=== PATIENT | female | born 1945 | race Caucasian/White ===

== ENCOUNTER 2017-09-24 14:36 | Outpatient (CLI) | payer MEDICARE, OTHER, SELFPAY ==
[2017-09-24] VITALS (8 sets, daily range): BP systolic 104–145; BP diastolic 49–103; PULSE 70–75; RESP 12–18; TEMP 36.3; O2SAT 95–99
--- NOTE | 2017-09-24 14:39 | DI.RAD.S_ITS ---
PROCEDURE: PAIN L/S TRANSFORAMINAL INJECT INDICATIONS: L5 RADICULOPATHY FINDINGS: Fluoroscopic spot filming was performed to verify placement of spinal needles at the L5 level(s), as labeled on the films. Appropriate location(s) of the needle tip(s) was confirmed by injection of iodinated contrast. IMPRESSION: Image documentation of epidural needle injection at the right L5 level. Dictated by: Hiro Henderson M.D. on 09/24/2017 at 16:23 Approved by: Hiro Henderson M.D. on 09/24/2017 at 16:25
--- NOTE | 2017-09-24 15:20 | P.PCN_ITS ---
Procedures Date/Time Date of procedure: 09/24/17 Time of procedure: 15:18 General Procedure description: PREOP DIAGNOSIS 1. FORAMINAL STENOSIS WITH LE SYMPTOMS, POST OP DIAGNOSIS 1. FORAMINAL STENOSIS WITH LE SYMPTOMS, PROCEDURES 1.FLUOROSCOPICALLY GUIDED CONTRAST CONTROLLED TRANSFORAMINAL EPIDURAL STEROID INJECTION - RIGHT L5/S1 TFESI PHYSICIAN: Jorge Luis Mariano DO INDICATIONS: Halley is referred by GURDEEP Butler for treatment of Foraminal Stenosis with right LE Symptoms FINDINGS Foraminal Nerve Root Compression secondary to disc disease and facet hypertrophy DESCRIPTION OF PROCEDURE Following denial of allergy and review of potential side effects and complications, including, but not necessarily limited to, infection, allergic reaction, local tissue breakdown, stroke, temporary or permanent nerve injury, paralysis, and possible , the patient indicated that the patient understood and agreed to proceed. An informed consent document was signed by the patient, witnessed by a nurse, and placed in the patient's chart. Additionally, other treatment options including medications, modalities, and physical therapy were reviewed with the patient. In the prone position following sterile prep and drape of the lumbar region, the right L5/S1 posterior neuroforamen was identified fluoroscopically. The skin was anesthetized via a 25-gauge 1.5-inch needle with 1% lidocaine solution. At this point, a 25-gauge 3.5-inch spinal needle was atraumatically introduced and advanced under fluoroscopic guidance through the posterior right L5/S1 neuroforamen to approximately the anterior aspect of the canal. Depth was confirmed on lateral view. Following negative aspiration, injection of approximately 1.5 cc of Isovue 200 under live fluoroscopy in the AP view confirmed excellent flow along the nerve root, into the epidural space without vascular or intrathecal uptake observed Radiological data, including multiple fluoroscopic views of the lumbosacral spine, reveal a spinal needle at the right L5/S1 posterior neuroforamen. Subsequent views show flow of contrast material flowing superiorly and inferiorly along the nerve root confirming epidural flow. Subsequently, a test dose of 1.5 cc of 1% lidocaine solution was administered and patient was observed for two minutes for signs or symptoms of complications , including abdominal pain, shortness of breath, bilateral upper or lower extremity weakness, nausea and vomiting, prior to steroid injection. At this point, a total of 3 cc or 20 mg of dexamethasone and 80mg Depo Medrol was injected without incident. The patient was then transferred to the recovery area where they were observed for an appropriate time after the injection. The patient reported a VAS score of 7 prior to the procedure and a post-procedure VAS of 0. Total Fluoroscopy Time: 20.9 seconds Total Conscious Sedation Time: 24min POST OP INSTRUCTIONS The patient was provided a Pain Log to continue to record their response to the target-specific procedure prior to follow-up visit with their referring physician. Additionally, specific post-injection care instructions and a contact number to our office were provided if concerns arise regarding possible complications associated with the procedure are suspected. Jorge Luis Mariano DO Complications: none
[2017-09-24] MEDS: MIDAZOLAM 5 MG/5 ML VIAL IV (15:30)
[2017-09-24] MEDS: BUPIVACAINE 0.25% (PF) 30 ML VIAL INJ (15:30)
[2017-09-24] MEDS: IOPAMIDOL 15 ML VIAL 3 ML INJ (15:30)
[2017-09-24] MEDS: methylPREDNISolone acetate 80 MG/ML VIAL INJ (15:30)
== END 2017-09-24 16:23 ==
LOC: RAD 14:38
PROVIDERS: Family Provider Student in an Organized Health Care Education/Training Program; PCP Student in an Organized Health Care Education/Training Program; Visit Provider Physical Medicine & Rehabilitation
DX: M48.061 Spinal stenosis, lumbar region without neurogenic claudication (principal); M43.17 Spondylolisthesis, lumbosacral region; M54.17 Radiculopathy, lumbosacral region
CPT/HCPCS: 64483; 99152; J1040; J2250

== ENCOUNTER → 2017-10-16 10:51 | Outpatient (CLI) | payer MEDICARE, OTHER, SELFPAY ==
--- NOTE | 2017-10-16 10:53 | DI.RAD.S_ITS ---
PROCEDURE: XR HIP W PEL IF DONE RT 2V INDICATIONS: right hip pain TECHNIQUE: AP pelvis with lateral view(s) of the right hip(s). COMPARISON: [facility], , PELVIS WITH BILATERAL HIPS, 05/12/2012, 10:17. FINDINGS: Bones: No fractures or dislocations. Pelvic ring appears intact. No suspicious bony lesions. Right hip joint space narrowing has increased since prior exam. Mild left hip joint space narrowing is unchanged. Minimal hypertrophic changes and sclerosis right greater than left.. Soft tissues: The visualized bowel gas pattern is normal. No suspicious soft tissue calcifications. IMPRESSION: Increased arthritis right hip Dictated by: Hiro Henderson M.D. on 10/16/2017 at 12:15 Approved by: Hiro Henderson M.D. on 10/16/2017 at 12:17
== END ==
PROVIDERS: Family Provider Student in an Organized Health Care Education/Training Program; PCP Student in an Organized Health Care Education/Training Program; Visit Provider Physical Medicine & Rehabilitation
DX: M16.11 Unilateral primary osteoarthritis, right hip (principal); M25.551 Pain in right hip
CPT/HCPCS: 73502

== ENCOUNTER 2018-05-26 11:07 | Outpatient (CLI) | payer MEDICARE, OTHER, SELFPAY ==
[2018-05-26] VITALS (8 sets, daily range): BP systolic 125–146; BP diastolic 57–88; PULSE 70–78; RESP 16–18; TEMP 36.2; O2SAT 96–98
--- NOTE | 2018-05-26 11:10 | DI.RAD.S_ITS ---
PROCEDURE: PAIN L/S TRANSFORAMINAL INJECT INDICATIONS: L5 radiculopathy FINDINGS: Fluoroscopic spot filming was performed to verify placement of spinal needles at the L5-S1 level(s), as labeled on the films. Appropriate location(s) of the needle tip(s) was confirmed by injection of iodinated contrast. Dictated by: Dewayne Yang M.D. on 05/26/2018 at 13:47 Approved by: Dewayne Yang M.D. on 05/26/2018 at 13:48
[2018-05-26] MEDS: MIDAZOLAM 5 MG/5 ML VIAL IV (11:44)
[2018-05-26] MEDS: BUPIVACAINE 0.25% (PF) VIAL 2 ML INJ (11:47)
[2018-05-26] MEDS: IOPAMIDOL 15 ML VIAL 3 ML INJ (11:47)
[2018-05-26] MEDS: DEXAMETHASONE 10 MG/ML VIAL 20 MG INJ (11:48)
--- NOTE | 2018-05-26 11:53 | PC.NURSE ---
pt tolerated procedure. Able to get off table with minimal assist. Transferred pt to pre procedure room via wheelchair for continued monitoring with Heidy AL.
--- NOTE | 2018-05-26 11:58 | P.PCN_ITS ---
Procedures Date/Time Date of procedure: 05/26/18 Time of procedure: 11:56 General Procedure description: PREOP DIAGNOSIS 1. FORMAINAL STENOSIS WITH LE SYMPTOMS, POST OP DIAGNOSIS 1. FORMAINAL STENOSIS WITH LE SYMPTOMS, PROCEDURES 1.FLUOROSCOPICALLY GUIDED CONTRAST CONTROLLED TRANSFORAMINAL EPIDURAL STEROID INJECTION - RIGHT L5/S1 TFESI PHYSICIAN: Jorge Luis Mariano DO INDICATIONS: Halley is referred by GURDEEP Malik for treatment of Foraminal Stenosis with right LE Symptoms FINDINGS Foraminal Nerve Root Compression secondary to disc disease and facet hypertrophy DESCRIPTION OF PROCEDURE Following denial of allergy and review of potential side effects and complications, including, but not necessarily limited to, infection, allergic reaction, local tissue breakdown, stroke, temporary or permanent nerve injury, paralysis, and possible , the patient indicated that the patient understood and agreed to proceed. An informed consent document was signed by the patient, witnessed by a nurse, and placed in the patient's chart. Additionally, other treatment options including medications, modalities, and physical therapy were reviewed with the patient. After review of previous anaesthesic history and IV conscious sedation the patient was deemed safe to proceed with todays procedure with IV conscious sedation as ASA class II designation. Safety time-out was performed to confirm patient ID, procedure to be performed and site of procedure. IV sedation was accomplished with a combination of 3mg was administered by the RN after DO order, titrated to patient comfort during the course of the procedure while the patient remained responsive to all verbal commands In the prone position following sterile prep and drape of the lumbar region, the right L5/S1 posterior neuroforamen was identified fluoroscopically. The skin was anesthetized via a 25-gauge 1.5-inch needle with 1% lidocaine solution. At this point, a 25-gauge 3.5-inch spinal needle was atraumatically introduced and advanced under fluoroscopic guidance through the posterior right L5/S1 neuroforamen to approximately the anterior aspect of the canal. Depth was confirmed on lateral view. Following negative aspiration, injection of approximately 1.5 cc of Isovue 200 under live fluoroscopy in the AP view confirmed excellent flow along the nerve root, into the epidural space without vascular or intrathecal uptake observed Radiological data, including multiple fluoroscopic views of the lumbosacral spine, reveal a spinal needle at the right L5/S1 posterior neuroforamen. Subsequent views show flow of contrast material flowing superiorly and in feriorly along the nerve root confirming epidural flow. Subsequently, a test dose of 1.5 cc of 1% lidocaine solution was administered and patient was observed for two minutes for signs or symptoms of complications, including abdominal pain, shortness of breath, bilateral upper or lower extremity weakness, nausea and vomiting, prior to steroid injection. At this point, a total of 2cc or 20mg of dexamethasone was injected without incident. The procedure tolerated the procedure well without signs or symptoms of complications prior to transfer to the recovery area continued monitoring with out incident. The patient was then transferred to the recovery area where they were observed for an appropriate time after the injection. The patient reported a VAS score of 7 prior to the procedure and a post-procedure VAS of 0. Total Fluoroscopy Time: 20.9 seconds Total Conscious Sedation Time: 24min POST OP INSTRUCTIONS The patient was provided a Pain Log to continue to record their response to the target-specific procedure prior to follow-up visit with their referring physician. Additionally, specific post-injection care instructions and a contact number to our office were provided if concerns arise regarding possible complications associated with the procedure are suspected. Jorge Luis Mariano DO Complications: none
--- NOTE | 2018-05-27 16:23 | PC.NURSE ---
Follow up call made post procedure. Her pain on the Right side is gone but she is now having pain on her left. She has an appt tomorrow with her chiropractor and will also take some tramadol for her continuous headache. She has both diazepam and Tramadol and decided to take the Tramadol for sx's I will let Dr. Mariano know.
== END 2018-05-26 12:23 | disposition home or self-care (01) ==
LOC: RAD 11:09
PROVIDERS: PCP Student in an Organized Health Care Education/Training Program; Visit Provider Physical Medicine & Rehabilitation
DX: M48.07 Spinal stenosis, lumbosacral region (principal); M51.17 Intervertebral disc disorders with radiculopathy, lumbosacral region
CPT/HCPCS: 64483; 99152; J1100; J2250

== ENCOUNTER → 2018-07-03 12:27 | Outpatient (CLI) | payer MEDICARE, OTHER, SELFPAY ==
--- NOTE | 2018-07-03 12:32 | DI.RAD.S_ITS ---
PROCEDURE: XR LUMBAR SPINE MIN 4V INDICATIONS: Lumbar Radiculopathy TECHNIQUE: 5 views of the lumbar spine were acquired. COMPARISON: [facility], , L-SPINE 2-3 VIEWS, 09/20/2010, 15:16. FINDINGS: Bones: 5 nonrib-bearing vertebrae are present. Grade 1 anterolisthesis of L5 on S1 is again seen. There is grade 1 anterolisthesis of L4 on L5 not definitely noticed on previous study in 2010. Chronic appearing anterior wedge compression deformity at L2 level is again seen with interval further loss of L2 vertebral body height. There is anterior wedge compression deformity at L1 level which is new since the study with approximately 30% loss of L1 vertebral body height anteriorly. No other compression fracture. Degenerative disc disease throughout lumbar spine is seen more prominent at L2-3, L4-5 and L5-S1 levels. No suspicious bony lesions. Soft tissues: Overlying bowel gas pattern is normal. No suspicious soft tissue calcifications. Oblique images: Bilateral pars defects are noted at L5 level. Suggestion of bilateral neural foramina narrowing at L4-5 and L5-S1 levels are seen. IMPRESSION: 1. Bilateral pars defect at L5 level with grade 1 anterolisthesis of L5 on S1 unchanged from prior study. 2. Interval development of minimal anterolisthesis of L4 on L5. No gross pars defect is seen at this level. 3. Degenerative disc disease throughout lumbar spine. Chronic appearing compression deformity of L2, with interval further loss of L2 vertebral body height. Age indeterminate anterior wedge compression deformity of L1 new since 2000 study. Dictated by: Danie Rice M.D. on 07/03/2018 at 14:46 Approved by: Danie Rice M.D. on 07/03/2018 at 14:49
--- NOTE | 2018-07-03 12:32 | DI.RAD.S_ITS ---
PROCEDURE: XR KNEE LT 3V INDICATIONS: Knee DJD TECHNIQUE: 3 views of the knee were acquired. COMPARISON: None. FINDINGS: Bones: Mild to moderate tricompartment osteoarthritis is seen, more prominent in the medial femorotibial compartment. No fractures or dislocations. No patella subluxation. No suspicious bony lesions. Soft tissues: No joint effusion. No suspicious soft tissue calcifications. IMPRESSION: Mild to moderate intra-compartment osteoarthritis. Dictated by: Danie Rice M.D. on 07/03/2018 at 14:34 Approved by: Danie Rice M.D. on 07/03/2018 at 14:45
--- NOTE | 2018-07-03 12:32 | DI.RAD.S_ITS ---
PROCEDURE: XR KNEE RT 3V INDICATIONS: Knee DJD TECHNIQUE: 3 views of the knee were acquired. COMPARISON: None. FINDINGS: Bones: Moderate tricompartmental osteoarthritis is seen. No fractures or dislocations. No suspicious bony lesions. No significant patellar subluxation. Soft tissues: No joint effusion. No suspicious soft tissue calcifications. IMPRESSION: Moderate tricompartmental osteoarthritis. Dictated by: Danie Rice M.D. on 07/03/2018 at 14:34 Approved by: Danie Rice M.D. on 07/03/2018 at 14:34
== END ==
PROVIDERS: PCP Student in an Organized Health Care Education/Training Program; Visit Provider Physical Medicine & Rehabilitation
DX: M17.0 Bilateral primary osteoarthritis of knee (principal); M51.16 Intervertebral disc disorders with radiculopathy, lumbar region; M51.17 Intervertebral disc disorders with radiculopathy, lumbosacral region; M43.17 Spondylolisthesis, lumbosacral region; S32.020S Wedge compression fracture of second lumbar vertebra, sequela; S32.010S Wedge compression fracture of first lumbar vertebra, sequela; M48.062 Spinal stenosis, lumbar region with neurogenic claudication; Z96.641 Presence of right artificial hip joint; M17.12 Unilateral primary osteoarthritis, left knee; M54.17 Radiculopathy, lumbosacral region; M51.36 Other intervertebral disc degeneration, lumbar region; Z98.890 Other specified postprocedural states
CPT/HCPCS: 20611; 72110; 73562; 99214; J7318

== ENCOUNTER 2018-07-28 13:47 | Outpatient (CLI) | payer MEDICARE, OTHER, SELFPAY ==
[2018-07-28] VITALS (9 sets, daily range): BP systolic 135–161; BP diastolic 51–93; PULSE 68–74; RESP 16–18; TEMP 36.2; O2SAT 94–98
--- NOTE | 2018-07-28 13:49 | DI.RAD.S_ITS ---
PROCEDURE: PAIN L/S TRANSFORAMINAL INJECT INDICATIONS: RADICULOPATHY FINDINGS: Fluoroscopic spot filming was performed to verify placement of spinal needles at the L4-L5 level(s), as labeled on the films. Appropriate location(s) of the needle tip(s) was confirmed by injection of iodinated contrast. IMPRESSION: Fluoroscopy guidance for pain management. Dictated by: Marvin Lehman M.D. on 07/28/2018 at 15:45 Approved by: Marvin Lehman M.D. on 07/28/2018 at 15:45
[2018-07-28] MEDS: MIDAZOLAM 5 MG/5 ML VIAL IV (14:33)
[2018-07-28] MEDS: BUPIVACAINE 0.25% (PF) VIAL 2 ML INJ (14:37)
[2018-07-28] MEDS: BETAMETHASONE 30 MG/5 ML MDV 6 MG INJ (14:37)
[2018-07-28] MEDS: DEXAMETHASONE 10 MG/ML VIAL 20 MG INJ (14:37)
[2018-07-28] MEDS: IOPAMIDOL 15 ML VIAL 3 ML INJ (14:37)
--- NOTE | 2018-07-28 14:43 | PC.NURSE ---
ASSISTING PT OFF TABLE AND TRANSPORTING TO POST PROC AREA IN STABLE CONDITION
--- NOTE | 2018-07-28 14:49 | P.PCN_ITS ---
Procedures Date/Time Date of procedure: 07/28/18 Time of procedure: 14:48 General Procedure description: PREOP DIAGNOSIS 1. FORMAINAL STENOSIS WITH LE SYMPTOMS POST OP DIAGNOSIS 1. FORMAINAL STENOSIS WITH LE SYMPTOMS PROCEDURES 1. FLUOROSCOPICALLY GUIDED CONTRAST CONTROLLED TRANSFORAMINAL EPIDURAL STEROID INJECTION - RIGHT L4/5 TFESI PHYSICIAN: Jorge Luis Mariano DO INDICATIONS: Halley is referred by GURDEEP Malik for treatment of Foraminal Stenosis with Right LE Symptoms FINDINGS Foraminal Nerve Root Compression secondary to disc disease and facet hypertrophy DESCRIPTION OF PROCEDURE: Following denial of allergy and review of potential side effects and complications, including, but not necessarily limited to, infection, allergic reaction, local tissue breakdown, stroke, temporary or permanent nerve injury, paralysis, and possible , the patient indicated that the patient understood and agreed to proceed. An informed consent document was signed by the patient, witnessed by a nurse, and placed in the patient's chart. Additionally, other treatment options including medications, modalities, and physical therapy were reviewed with the patient. After review of previous anaesthesic history and IV conscious sedation the patient was deemed safe to proceed with todays procedure with IV conscious sedation as ASA class II designation. Safety time-out was performed to confirm patient ID, procedure to be performed and site of procedure. IV sedation was accomplished with a combination of 3mg of Versed was administered by the RN after DO order, titrated to patient comfort during the course of the procedure while the patient remained responsive to all verbal commands In the prone position following sterile prep and drape of the lumbar region, the Right L4/5 posterior neuroforamen was identified fluoroscopically. The skin was anesthetized via a 25-gauge 1.5-inch needle with 1% lidocaine solution. At this point, a 25-gauge 3.5-inch spinal needle was atraumatically introduced and advanced under fluoroscopic guidance through the posterior Right L4/5 neuroforamen to approximately the anterior aspect of the canal. Depth was confirmed on lateral view. Following negative aspiration, injection of approximately 1.5 cc of Isovue 200 under live fluoroscopy in the AP view confirmed excellent flow along the nerve root, into the epidural space without vascular or intrathecal uptake observed Radiological data, including multiple fluoroscopic views of the lumbosacral spine, reveal a spinal needle at the right L4/5 posterior neuroforamen. Subsequent views show flow of contrast material flowing superiorly and inferiorly along the nerve root confirming epidural flow. Subsequently, a test dose of 1.5 cc of 1% lidocaine solution was administered and patient was observed for two minutes for signs or symptoms of complications, including abdominal pain, shortness of breath, bilateral upper or lower extremity weakness, nausea and vomiting, prior to steroid injection. At this point, a total of 2cc or 20mg of dexamethasone was injected without incident. The procedure tolerated the procedure well without signs or symptoms of complications prior to transfer to the recovery area continued monitoring without incident.The patient was then transferred to the recovery area where they were observed for an appropriate time after the injection. The patient reported a VAS score of 7 prior to the procedure and a post- procedure VAS of 0. Total Fluoroscopy Time: 20.9 seconds Total Conscious Sedation Time: 24min POST OP INSTRUCTIONS The patient was provided a Pain Log to continue to record their response to the target-specific procedure prior to follow-up visit with their referring physician. Additionally, specific post-injection care instructions and a contact number to our office were provided if concerns arise regarding possible complications associated with the procedure are suspected. Jorge Luis Mariano DO Complications: none
--- NOTE | 2018-07-28 14:55 | PC.NURSE ---
Pt returned from Procedure awake and alert able to move to chair from W/C with standby assist. Resumed monitoring from Heidy AL.
--- NOTE | 2018-07-29 15:42 | PC.NURSE ---
FOLLOW UP CALL MADE, PT STATES PAIN COMES BACK ON THIGH IF I DON'T WEAR MY BRACE BUT SAYS OTHER THAN THAT, THE PAIN IS DECREASED. PT REQUESTS I REMIND DR. FLYNN OF DESIRE FOR PROCEDURE TO BE DONE ON RT KNEE. WILL SEND DR. FLYNN AN EMAIL. PT DENIES OTHER QUESTIONS/CONCERNS.
== END 2018-07-28 15:15 ==
LOC: RAD 13:48
PROVIDERS: PCP Student in an Organized Health Care Education/Training Program; Visit Provider Physical Medicine & Rehabilitation
DX: M48.062 Spinal stenosis, lumbar region with neurogenic claudication (principal); M51.16 Intervertebral disc disorders with radiculopathy, lumbar region
CPT/HCPCS: 64483; 99152; J0702; J1100; J2250; J3010

== ENCOUNTER → 2018-12-30 09:11 | Outpatient (CLI) | payer MEDICARE, OTHER, SELFPAY ==
--- NOTE | 2018-12-30 09:15 | DI.MRI.S_ITS ---
PROCEDURE: MR HEAD/BRAIN WO/W CON INDICATIONS: change in migraine headaches now with vertigo + age > 50 y/o TECHNIQUE: Noncontrast axial T1 spin echo, axial T2 fast spin echo, sagittal and axial FLAIR, coronal T2 fast spin echo, axial gradient echo, axial diffusion and ADC through the brain. After the administration of contrast, axial and coronal T1 spin echo with fat saturation through the brain. COMPARISON: None. FINDINGS: Image quality: Partially degraded by motion artifact. CSF spaces: Basal cisterns are patent. No extra-axial fluid collections. Ventricles are normal in size and shape. Brain: No midline shift. No intracranial bleeds or masses. No abnormal intracranial enhancement. There is mild cerebral volume loss for age. The brainstem appears normal. Diffusion-weighted images demonstrate no acute ischemic insults. No chronic ischemic insults. Normal intravascular flow voids are present. Skull and face: Calvarial marrow is normal in signal. Orbits appear normal. Sinuses: Sinuses and mastoids appear clear. IMPRESSION: 1. No acute process. No recent infarct. 2. No explanation for headache. 3. Mild diffuse cerebral volume loss. Dictated by: Essie Lewis M.D. on 12/30/2018 at 11:12 Approved by: Essie Lewis M.D. on 12/30/2018 at 11:20
== END ==
PROVIDERS: Family Provider Student in an Organized Health Care Education/Training Program; PCP Student in an Organized Health Care Education/Training Program; Visit Provider Family Medicine
DX: G43.909 Migraine, unspecified, not intractable, without status migrainosus (principal); R42 Dizziness and giddiness
CPT/HCPCS: 70553; A9579

== ENCOUNTER 2019-04-20 09:01 | Outpatient (CLI) | payer BC, MEDICARE, SELFPAY ==
[2019-04-20] VITALS (8 sets, daily range): BP systolic 129–149; BP diastolic 58–91; PULSE 73–84; RESP 16–18; TEMP 35.9; O2SAT 95–97
--- NOTE | 2019-04-20 09:04 | DI.RAD.S_ITS ---
PROCEDURE: PAIN L/SI FACET INJ/BLK 1STL INDICATIONS: Spondylosis FINDINGS: Fluoroscopic spot filming was performed to verify placement of spinal needles at the L4-L5 and L5-S1 level(s), as labeled on the films. Appropriate location(s) of the needle tip(s) was confirmed by injection of iodinated contrast. IMPRESSION: Fluoroscopy for pain management. Dictated by: Marvin Lehman M.D. on 04/20/2019 at 12:18 Approved by: Marvin Lehman M.D. on 04/20/2019 at 12:19
[2019-04-20] MEDS: MIDAZOLAM 5 MG/5 ML VIAL IV (09:58)
[2019-04-20] MEDS: BETAMETHASONE 30 MG/5 ML MDV 12 MG INJ (10:08)
[2019-04-20] MEDS: IOPAMIDOL 15 ML VIAL 3 ML INJ (10:08)
[2019-04-20] MEDS: BUPIVACAINE 0.5% (PF) VIAL 2 ML INJ (10:08)
--- NOTE | 2019-04-20 10:09 | PC.NURSE ---
ASSISTING PT OFF TABLE AND TRANSPORTING TO POST PROC AREA IN STABLE CONDITION. PASSING RN CARE OF PT OFF TO MINE Galvez RN
--- NOTE | 2019-04-20 10:13 | P.PCN_ITS ---
Procedures Date/Time Date of procedure: 04/20/19 Time of procedure: 10:13 General Procedure description: PREOP DIAGNOSIS 1. FACET ARTHROPATHY, 2. AXIAL LBP, 3. MULTILEVEL DDD, POST OP DIAGNOSIS 1. FACET ARTHROPATHY, 2. AXIAL LBP, 3. MULTILEVEL DDD, PROCEDURES 1. FLUORSCOPICALLY GUIDED CONTRAST CONTROLLED FACET JOINT INJECTIONS RIGHT L4/5, L5/S1 SURGEON: Jorge Luis Mariano, INDICATIONS Halley is referred by Katt Malik for treatment of Axial LBP FINDINGS Multilevel Facet Arthropathy with Clinically significant axial LBP DESCRIPTION OF PROCEDURE Fluoroscopically guided, contrast-controlled right L4/5, L5/S1 facet joint injections. Following review of allergy and review of potential side effects and complications, including, but not necessarily limited to, infection, allergic reaction, local tissue breakdown, stroke, temporary or permanent nerve injury, paralysis, and possible , the patient indicated that the patient understood and agreed to proceed. An informed consent document was signed by the patient, witnessed by a nurse, and placed in the patient's chart. Additionally, other treatment options including medications, modalities, and physical therapy were reviewed with the patient. After review of previous anaesthesic history and IV conscious sedation the patient was deemed safe to proceed with todays procedure with IV conscious sedation as ASA class II designation. Safety time-out was performed to confirm patient ID, procedure to be performed and site of procedure. IV sedation was accomplished with a combination of 3mg of Versed was administered by the RN after DO order, titrated to patient comfort during the course of the procedure while the patient remained responsive to all verbal commands. In the prone position, following sterile prep and drape of the lumbar region, the posterior aspect of the right L4/5, L5/S1 facet joints were identified fluoroscopically. The skin was anesthetized via a 25-gauge 1.5-inch needle with 1% lidocaine solution into the corresponding facet joints. At this point, a 22- gauge 3.5-inch spinal needle was atraumatically introduced and advanced under fluoroscopic guidance into the corresponding facet joints. Following negative aspiration, injections of approximately 0.2-cc of Isovue 200 confirmed interarticular placement without vascular uptake. Radiological data, including multiple fluoroscopic views of the lumbosacral spine, reveal a spinal needle at the right L4/5, L5/S1 facet joints. Subsequent views show flow of contrast material both superiorly and inferiorly within the joint space without vascular or intrathecal uptake. At this point, a total of 0.5 cc including a mixture of 0.25cc Marcaine and 0.25cc betamethasone was injected without complication into each of the corresponding facet joints. The procedure tolerated the procedure well without signs or symptoms of complications prior to transfer to the recovery area continued monitoring without incident. The patient was then transferred to the recovery area where they were observed for an appropriate period of time after the injection. The patient reported a VAS score of 7 prior to the procedure and a post-procedure VAS of 0. Total Fluoroscopy Time: 12.7 seconds Total Conscious Sedation Time: 24min POST OP INSTRUCTIONS The patient was provided a Pain Log to continue to record their response to the target-specific procedure prior to follow-up visit with their referring physician. Additionally, specific post-injection care instructions and a contact number to our office were provided if concerns arise regarding possible complications associated with the procedure are suspected. Jorge Luis Mariano, Complications: none
--- NOTE | 2019-04-20 10:46 | PC.NURSE ---
Post procedure discharge note: Patient arrived awake but drowsy. VSS on arrival with RA Sat WNL. NO compliants of pain. 0/10. Denied any numbness or tingling to lower extremities. Discharged to home, w/c to car with at 1039.
== END 2019-04-20 10:39 | disposition home or self-care (01) ==
LOC: RAD 09:04
PROVIDERS: Family Provider Student in an Organized Health Care Education/Training Program; PCP Student in an Organized Health Care Education/Training Program; Visit Provider Physical Medicine & Rehabilitation
DX: M47.816 Spondylosis without myelopathy or radiculopathy, lumbar region (principal); M47.817 Spondylosis without myelopathy or radiculopathy, lumbosacral region; M54.5 Low back pain; M51.36 Other intervertebral disc degeneration, lumbar region; M51.37 Other intervertebral disc degeneration, lumbosacral region
CPT/HCPCS: 64493; 64494; 99152; J0702; J2250; J3010

== ENCOUNTER → 2019-04-27 15:45 | Outpatient (ROUT) | payer OTHER, MEDICARE, SELFPAY | PROVIDERS: Family Provider Student in an Organized Health Care Education/Training Program; PCP Student in an Organized Health Care Education/Training Program; Visit Provider Internal Medicine | DX: R39.15 Urgency of urination (principal); N39.0 Urinary tract infection, site not specified | CPT/HCPCS: 87086 ==

== ENCOUNTER → 2019-08-21 08:45 | Outpatient (CLI) | payer OTHER, MEDICARE, SELFPAY ==
[2019-08-22 21:59] LABS: COVID19 Sendout Not Detected (Not Detect)
== END ==
PROVIDERS: Family Provider Student in an Organized Health Care Education/Training Program; PCP Student in an Organized Health Care Education/Training Program; Visit Provider Family Medicine
DX: Z01.818 Encounter for other preprocedural examination (principal)
CPT/HCPCS: 87635

== ENCOUNTER → 2019-08-23 07:41 | Outpatient (CLI) | payer OTHER, SELFPAY ==
--- NOTE | 2019-08-23 07:43 | DI.MRI.S_ITS ---
PROCEDURE: MR LUMBAR SPINE WO CON INDICATIONS: LBP with Bilateral LE symptoms TECHNIQUE: Noncontrast sagittal T1 spin echo and T2 fast echo, sagittal STIR, axial T1 and T2 fast spin echo through the lumbar spine. In cases with scoliosis, additional coronal T2 fast spin echo may be performed. COMPARISON: None. FINDINGS: Image quality: Diagnostic, with note made of motion artifact. Alignment and Curvature: Grade 1 anterolisthesis is seen at the L5-S1 level. Bilateral L5 pars defects are faintly seen. There is minimal retrolisthesis seen at L2-L3. Bone Marrow: Marrow is of normal overall signal. No acute vertebral body compression fractures. Anterior wedge deformities can be seen L1 and L2, with 40% loss of height anteriorly at L1 and 40% loss of height anteriorly at L2. No acute features are seen. No posterior displacement of fracture fragments can be seen. Spinal Cord: Conus medullaris terminates at the L1 level. Visualized cord demonstrates normal signal and size. Paraspinous Soft Tissues: No paravertebral masses. T12-L1: The disc height is well-preserved. Loss of disc signal is seen at this level. Mild generalized disc bulge is seen. No significant neural foraminal or central canal narrowing can be seen. L1-L2: The disc height is well-preserved. Loss of disc signal is seen at this level. Minimal to mild disc bulge is seen. No significant neural foraminal or central canal narrowing can be seen. L2-L3: The disc height is well-preserved. Loss of disc signal is seen at this level. Mild disc bulge is seen, which is eccentric to the left. Mild to moderate facet hypertrophy is seen. There is mild to moderate right-sided and moderate left-sided neural foraminal narrowing seen. Mild central canal narrowing is seen. L3-L4: Mild loss of disc height is seen. Loss of disc signal is seen. Mild generalized disc bulge is seen. Mild facet joint hypertrophy is seen. Mild bilateral neural foraminal narrowing is seen. No significant central canal narrowing is seen. L4-L5: The disc height is well-preserved. Loss of disc signal is seen at this level. Mild generalized disc bulge is seen. Moderate to prominent facet hypertrophy is seen. Fluid is seen within the facet joints themselves. Moderate bilateral neural foraminal narrowing is seen. No central canal narrowing is seen. L5-S1: Moderate loss of disc height is seen. Loss of disc signal is seen. Moderate disc bulge is seen, which is eccentric to the right. Mild to moderate facet hypertrophy is seen. There is at least moderate right-sided and moderate to severe left-sided neural foraminal narrowing seen. There is a degree of compression seen upon the exiting nerve roots. No significant central canal narrowing is seen. IMPRESSION: Multiple levels of lumbar spine degenerative change are seen, which are most prominent at the L5-S1 level. Remote anterior wedge deformities of L1 and L2. Dictated by: Agusto Aleman M.D. on 08/23/2019 at 9:13 Approved by: Agusto Aleman M.D. on 08/23/2019 at 9:27
== END ==
PROVIDERS: Family Provider Student in an Organized Health Care Education/Training Program; PCP Student in an Organized Health Care Education/Training Program; Referring Provider Physical Medicine & Rehabilitation; Visit Provider Physical Medicine & Rehabilitation
DX: M54.5 Low back pain (principal); M43.17 Spondylolisthesis, lumbosacral region; M47.27 Other spondylosis with radiculopathy, lumbosacral region; M47.26 Other spondylosis with radiculopathy, lumbar region; M43.8X6 Other specified deforming dorsopathies, lumbar region
CPT/HCPCS: 72148

== ENCOUNTER 2019-08-24 08:35 | Outpatient (CLI) | payer OTHER, SELFPAY ==
[2019-08-24] VITALS (11 sets, daily range): BP systolic 107–150; BP diastolic 67–98; PULSE 66–79; RESP 15–16; TEMP 36.6; O2SAT 94–99
--- NOTE | 2019-08-24 08:36 | DI.RAD.S_ITS ---
PROCEDURE: PAIN L/S FACET INJ/BLK 1ST TWYLA COMPARISON: None. INDICATIONS: SPODYLOSIS Fluoroscopic spot filming was performed to verify placement of spinal needles at the L4, L5, S1 level(s), as labeled on the films. Appropriate location(s) of the needle tip(s) was confirmed by injection of iodinated contrast. Dictated by: Dewayne Yang M.D. on 08/24/2019 at 11:18 Approved by: Dewayne Yang M.D. on 08/24/2019 at 11:19
[2019-08-24] MEDS: MIDAZOLAM 5 MG/5 ML VIAL IV (10:11)
[2019-08-24] MEDS: fentaNYL 100 MCG/2 ML INJ 50 MCG IV (10:18)
[2019-08-24] MEDS: BUPIVACAINE 0.5% (PF) VIAL 5 ML INJ (10:21)
[2019-08-24] MEDS: LIDOCAINE 1% 20 ML 10 ML INJ (10:21)
[2019-08-24] MEDS: IOPAMIDOL 15 ML VIAL 3 ML INJ (10:25)
--- NOTE | 2019-08-24 10:25 | PC.NURSE ---
ASSISTING PT OFF TABLE AND TRANSPORTING TO POST PROC AREA IN STABLE CONDITION. PASSING RN CARE OF PT OFF TO MIKAELA MARVIN.
--- NOTE | 2019-08-24 10:29 | P.PCN_ITS ---
Procedures Date/Time Date of procedure: 08/24/19 Time of procedure: 10:29 General Procedure description: Procedure description: 1. FACET ARTHROPATHY PROCEDURES: 1. BILATERAL- L4, L5 and S1 DIAGNOSTIC MB BLOCKS with LA Anesthetic PHYSICIAN: Jorge Luis Mariano DO INDICATIONS Halley is referred by GURDEEP Malik for treatment of Bilateral Axial LBP. DESCRIPTION OF PROCEDURE Fluoroscopically guided, contrast-controlled bilateral L4, L5 and S1 medial branch blocks with 0.5cc of 0.5% Marcaine. Following review of allergy and review of potential side effects and complications, including, but not necessarily limited to, infection, allergic reaction, local tissue breakdown, nerve injury, paralysis, stroke and possible , the patient indicated that the patient understood and agreed to proceed. An informed consent document was signed by the patient, witnessed by a nurse, and placed in the patient's chart. After review of previous anaesthesic history and IV conscious sedation the patient was deemed safe to proceed with todays procedure with IV conscious sedation as ASA class II designation. Safety time-out was performed to confirm patient ID, procedure to be performed and site of procedure. IV sedation was accomplished with a combination of 4mg of Versed and 50mcg of Fentanyl was administered by the RN after DO order, titrated to patient comfort during the course of the procedure while the patient remained responsive to all verbal commands In the prone position, following sterile prep and drape of the lumbar region, the right L4, L5 and S1 anatomical location of the medial branch of the dorsal ramus was identified fluoroscopically. Subsequently an anesthetic skin wheal using 1% lidocaine solution was initiated at each of the anatomical spots. Subsequently then a 22-gauge 3.5-inch spinal needle was atraumatically introduced and advanced under fluoroscopic guidance at each of the corresponding sites at the right L4, L5 and S1 MB. After negative aspiration, 0.2cc of Isovue 200 was injected, confirming placement without vascular or intrathecal uptake. Subsequently then 0.5cc of 0.5% Marcaine solution was injected at each of the corresponding sites at the right L4, L5 and S1 medial branch locations. The identical procedure was replicated on the left. The patient tolerated the procedure well without signs or symptoms of complications prior to transfer to the recovery area continued monitoring witho ut incident. Post-procedure, the patient was monitored initiating provocative activities to measure the amount of relief from block of the facetogenic pain. The patient reported a VAS of 7 prior to the procedure and a post-procedure VAS of 1. It has been a pleasure to assist in the diagnostic and therapeutic care of your patient. Total Fluoroscopy Time: 11 seconds Total Conscious Sedation Time: 24min POST OP INSTRUCTIONS The patient was provided with a Pain Log to complete over the next several hours and subsequent days prior to the patient's follow up with the ordering physician. If the patient has masonry supervisor relief to the solution applied, then they may be a candidate for medial branch rhizotomy. The patient is aware, was provided, once again, with a Pain Log and will follow up with the referring physician for review and clinical correlation Jorge Luis Mariano DO Complications: none
--- NOTE | 2019-08-24 11:25 | PC.NURSE ---
Pt arrived to post procedure recovery at 1033 via . Pt is drowsy, but responds to name and commands appropriately. Pt is able to transfer from to recover chair with only minimal assistance. Monitoring resumed from MIKAELA Moody.
== END 2019-08-24 11:15 | disposition home or self-care (01) ==
LOC: RAD 08:36
PROVIDERS: Family Provider Student in an Organized Health Care Education/Training Program; PCP Student in an Organized Health Care Education/Training Program; Referring Provider Physical Medicine & Rehabilitation; Visit Provider Physical Medicine & Rehabilitation
DX: M47.816 Spondylosis without myelopathy or radiculopathy, lumbar region (principal); M47.817 Spondylosis without myelopathy or radiculopathy, lumbosacral region; M54.5 Low back pain
CPT/HCPCS: 64493; 64494; 64636; 99152; J2250; J3010

== ENCOUNTER → 2019-12-29 10:11 | Outpatient (CLI) | payer BC, SELFPAY ==
--- NOTE | 2019-12-29 | DI.RAD.S_ITS ---
PROCEDURE: XR KNEE RT 3V INDICATIONS: KNEE DJD TECHNIQUE: 3 views of the knee were acquired. COMPARISON: [facility], , XR KNEE RT 3V, 07/03/2018, 12:42. FINDINGS: Bones: No fractures or dislocations. No suspicious bony lesions. Unchanged moderate tricompartment degenerative arthritis. Soft tissues: No joint effusion. No suspicious soft tissue calcifications. IMPRESSION: Unchanged moderate tricompartment degenerative arthritis of the right knee. Dictated by: Danie Wells M.D. on 12/29/2019 at 11:54 Approved by: Danie Wells M.D. on 12/29/2019 at 11:55
--- NOTE | 2019-12-29 10:13 | DI.RAD.S_ITS ---
PROCEDURE: XR KNEE LT 3V INDICATIONS: knee djd TECHNIQUE: 3 views of the knee were acquired. COMPARISON: [facility], BEN, XR KNEE LT 3V, 07/03/2018, 12:42. [facility], CR, XR KNEE RT 3V, 07/03/2018, 12:42. FINDINGS: Bones: No fractures or dislocations. No suspicious bony lesions. Mild interval progression of degenerative arthritis. Interval increase in medial compartment joint space loss, now moderate. Soft tissues: No joint effusion. No suspicious soft tissue calcifications. IMPRESSION: Interval progression of degenerative arthritis of the left knee. Dictated by: Danie Wells M.D. on 12/29/2019 at 10:49 Approved by: Danie Wells M.D. on 12/29/2019 at 10:51
== END ==
PROVIDERS: Family Provider Student in an Organized Health Care Education/Training Program; PCP Student in an Organized Health Care Education/Training Program; Referring Provider Physical Medicine & Rehabilitation; Visit Provider Physical Medicine & Rehabilitation
DX: M17.0 Bilateral primary osteoarthritis of knee (principal)
CPT/HCPCS: 73562

== ENCOUNTER → 2020-03-14 09:13 | Outpatient (CLI) | payer OTHER, SELFPAY ==
[2020-03-14 12:02] LABS: COVID19 -Nasal RAPID Negative (Negative)
== END ==
PROVIDERS: Family Provider Student in an Organized Health Care Education/Training Program; PCP Student in an Organized Health Care Education/Training Program; Visit Provider Physical Medicine & Rehabilitation
DX: Z01.812 Encounter for preprocedural laboratory examination (principal); Z20.828 Contact with and (suspected) exposure to other viral communicable diseases
CPT/HCPCS: 87635; C9803

== ENCOUNTER 2020-03-16 07:28 | Outpatient (CLI) | payer OTHER, SELFPAY ==
[2020-03-16] VITALS (14 sets, daily range): BP systolic 110–141; BP diastolic 55–69; PULSE 67–76; RESP 10–24; TEMP 36.3; O2SAT 90–96
--- NOTE | 2020-03-16 07:39 | DI.RAD.S_ITS ---
PROCEDURE: PAIN L/S MED/LAT N RFA BILAT INDICATIONS: SPONDYLOSIS COMPARISON: [facility], XA, PAIN L/S FACET INJ/BLK 1ST TWYLA, 08/24/2019, 9:13. FINDINGS: Fluoroscopic spot filming was performed to verify placement of spinal needles on the right on the left at the L4, L5, and S1 levels as labeled on the films. IMPRESSION: Intraprocedural examination within normal limits. Dictated by: Agusto Aleman M.D. on 03/16/2020 at 9:25 Approved by: Agusto Aleman M.D. on 03/16/2020 at 9:25
[2020-03-16] MEDS: fentaNYL 100 MCG/2 ML INJ 50 MCG IV (08:33)
[2020-03-16] MEDS: MIDAZOLAM 5 MG/5 ML VIAL IV (08:34)
[2020-03-16] MEDS: BUPIVACAINE 0.5% (PF) VIAL 5 ML INJ (08:40)
[2020-03-16] MEDS: LIDOCAINE 1% 20 ML INJ (08:40)
--- NOTE | 2020-03-16 09:13 | P.PCN_ITS ---
Date/Time/Diagnoses Date of procedure: 03/16/20 Time of procedure: 09:13 Pre-procedure diagnosis: 1. RECALCITRANT FACET ARTHROPATHY Post-procedure diagnosis: same Procedure Notes Procedure: 1. BILATERAL L4 AND L5 MEDIAL BRANCH RADIOFREQUENCY NEUROTOMY AND S1 DORSAL RAMUS BRANCH RADIOFREQUENCY NEUROTOMY Indications: Halley is referred by King Bolivar for treatment of facet arthropathy. Physician: Jorge Luis Mariano Total Fluoroscopy time (seconds): 25 Total sedation minutes: 34 Complications: none Procedure in detail & Post-procedure care: DESCRIPTION OF PROCEDURE Bilateral L4 and L5 medial branch radiofrequency neurotomy and bilateral S1 dorsal ramus radiofrequency neurotomy under fluoroscopy with conscious sedation. The patient is well known to this clinic having undergone previous facet injections with good but temporary relief. The patient has experienced appropriate, concordant relief with previous facet and median branch blocks but the patient's pain has been recalcitrant to further conservative measures. Therefore, based upon the patient's relief and persistent symptoms, the patient is considered an appropriate candidate for facet rhizotomy. All of the patient's questions regarding the risks versus benefits of the procedure, including, but not limited to, bleeding, infection, temporary as well as lasting nerve injury, paralysis, stroke, and , as well treatment alternatives were answered to satisfaction. After obtaining informed consent, denial of pertinent drug allergies, as well as being made aware of the potential risks of bleeding, infection, spinal cord trauma, paralysis, temporary and permanent nerve damage, seizure, stroke, and possible , the patient was brought to the fluoroscopy suite and positioned prone on the fluoroscopy table. The lumbar region was prepped with Betadine and covered with a fenestrated drape in the usual sterile fashion. Appropriate monitors applied including pulse oximeter, pulse, and blood pressure for regular monitoring throughout the procedure. After review of previous anaesthesic history and IV conscious sedation the patient was deemed safe to proceed with today's procedure with IV conscious sedation as ASA class II designation. Safety time-out was performed to confirm patient ID, procedure to be performed and site of procedure. IV sedation was accomplished with a combination of 4mg of Versed and 50mcg of Fentanyl administered by the RN after DO order, titrated to patient comfort during the course of the procedure while the patient remained responsive to all verbal commands. After local infiltration using 1% lidocaine, under fluoroscopic guidance, a 10- cm RF insulated needle with a 10-mm active tip was positioned parallel to the junction of the right sacral ala and the superior articulating process where the S1 dorsal ramus resides. Needle placement was confirmed with motor stimulation of .5v on the right which produced local stimulation without radicular component. The stimulation was then increased to 2v with, once again, only local multifidus stimulation without radicular component. The needle was then removed and the identical procedure was performed along the length of the right L5 medial branch with motor stimulation at .7v on the right. The identical procedure was once again performed along the length of the right L4 medial branch with motor stimulation of .5v on the right. The medial branches were then anesthetised with 0.5% Marcaine. This was then followed by two discreet lesions performed at 80 degrees Celsius for 90 seconds each. The identical procedure was repeated on the left. The patient tolerated the procedure well without signs or symptoms of complications prior to transfer to the recovery area continued monitoring without incident. The patient was then transferred to the recovery area where they were observed for an appropriate period of time after the injection. The patient reported a VAS score of 9 prior to the procedure and a post-procedure VAS of 0. POST OP INSTRUCTIONS The patient was provided a Pain Log to continue to record the patient's response to the target-specific procedure prior to the patient's follow-up visit with the referring physician. Additionally, specific post-injection care instructions and a contact number to our office were provided if concerns arise regarding possible complications associated with the procedure are suspected.
--- NOTE | 2020-03-16 11:39 | PC.NURSE ---
Patient arrived back from procedure felt dizzy/lightheaded and nauseated. VSS, requested water and cookies states that will help her nausea, declined Zofran. At d/c patient was able to stand at chair take a few steps, nausea was gone and no longer felt dizzy or lightheaded.
== END 2020-03-16 10:10 | disposition home or self-care (01) ==
LOC: RAD 07:28
PROVIDERS: Family Provider Student in an Organized Health Care Education/Training Program; PCP Student in an Organized Health Care Education/Training Program; Referring Provider Student in an Organized Health Care Education/Training Program; Visit Provider Physical Medicine & Rehabilitation
DX: M47.816 Spondylosis without myelopathy or radiculopathy, lumbar region (principal); M47.817 Spondylosis without myelopathy or radiculopathy, lumbosacral region
CPT/HCPCS: 64635; 64636; 99152; 99153; J2250; J3010

== ENCOUNTER → 2020-04-28 08:37 | Outpatient (CLI) | payer OTHER, SELFPAY ==
--- NOTE | 2020-04-28 08:38 | DI.RAD.S_ITS ---
PROCEDURE: XR LUMBAR SPINE MIN 4V INDICATIONS: LOW BACK LEFT HIP PAIN TECHNIQUE: 5 views of the lumbar spine were acquired. COMPARISON: [facility], BEN, XR LUMBAR SPINE MIN 4V, 07/03/2018, 12:42. [facility], [facility], L-SPINE 2-3 VIEWS, 09/20/2010, 15:16. FINDINGS: Bones: 5 nonrib-bearing vertebrae are present. There is abnormal bony alignment, with what appears to be bilateral pars interarticularis defects at L5 and moderate grade 1 anterolisthesis of L5 on S1.. L1 and L2 previously present vertebral body compression fractures are again noted, definitely worsened at L2 from June of 2018. . No suspicious bony lesions. Soft tissues: Overlying bowel gas pattern is normal. No suspicious soft tissue calcifications. Oblique images: No pars defects. IMPRESSION: Apparent pars interarticularis defects L5-S1, with moderate grade 1 anterolisthesis of L5 on S1. Spinal and foraminal stenosis likely is present at this level. Additionally, a previously present compression fracture involving the middle 3rd and to a lesser degree the anterior 3rd of the L2 vertebral body has worsened from 07/03/18, and there is also a stable mild to moderate degree of anterior wedge compression fracture at L1. Dictated by: Michael Cintron M.D. on 04/28/2020 at 10:51 Approved by: Michael Cintron M.D. on 04/28/2020 at 10:54
== END ==
PROVIDERS: Family Provider Student in an Organized Health Care Education/Training Program; PCP Student in an Organized Health Care Education/Training Program; Referring Provider Student in an Organized Health Care Education/Training Program; Visit Provider Physical Medicine & Rehabilitation
DX: M47.816 Spondylosis without myelopathy or radiculopathy, lumbar region (principal); M43.17 Spondylolisthesis, lumbosacral region; M25.552 Pain in left hip; M48.56XS Collapsed vertebra, not elsewhere classified, lumbar region, sequela of fracture; M16.9 Osteoarthritis of hip, unspecified
CPT/HCPCS: 72110

== ENCOUNTER → 2020-09-14 10:05 | Outpatient (CLI) | payer OTHER, SELFPAY ==
--- NOTE | 2020-09-14 | DI.RAD.S_ITS ---
PROCEDURE: XR CERVICAL SPINE 2V OR 3V INDICATIONS: VERTIGO TECHNIQUE: 3 view(s) of the cervical spine were acquired. COMPARISON: [facility], RF, CERVICAL TRANSLAMINAR, 12/15/2015, 11:29. [facility], MR, CERVICAL SPINE W/O CONTRAST, 06/25/2011, 15:56. [facility], MR, MR CERVICAL SPINE WO CON, 05/24/2015, 13:06. FINDINGS: Bones: No fractures or dislocations to the C7 level. There is grade 1 anterolisthesis of C4 on C5. Degenerative disc disease is present, moderate at C3-C4 and C5-C6, mild at C4-C5 and C6-C7. Bilateral facet arthropathy scattered in cervical spine, most pronounced at C4-C5. The lateral masses of C1 appear intact on the odontoid view. No suspicious bony lesions. Soft tissues: No prevertebral soft tissue swelling. IMPRESSION: Degenerative disc and facet disease in cervical spine as described. Dictated by: Marvin Lehman M.D. on 09/14/2020 at 11:19 Approved by: Marvin Lehman M.D. on 09/14/2020 at 11:27
== END ==
PROVIDERS: Family Provider Student in an Organized Health Care Education/Training Program; PCP Student in an Organized Health Care Education/Training Program; Referring Provider Student in an Organized Health Care Education/Training Program; Visit Provider Student in an Organized Health Care Education/Training Program
DX: R42 Dizziness and giddiness (principal); M50.31 Other cervical disc degeneration, high cervical region; M47.812 Spondylosis without myelopathy or radiculopathy, cervical region; M43.12 Spondylolisthesis, cervical region
CPT/HCPCS: 72040

== ENCOUNTER → 2020-12-13 14:08 | Outpatient (CLI) | payer OTHER, SELFPAY ==
[2020-12-13 16:01] LABS: COVID19 -Nasal RAPID Negative (Negative)
== END ==
PROVIDERS: Family Provider Student in an Organized Health Care Education/Training Program; PCP Student in an Organized Health Care Education/Training Program; Visit Provider Physical Medicine & Rehabilitation
DX: Z20.822 Contact with and (suspected) exposure to COVID-19 (principal)
CPT/HCPCS: 87635

== ENCOUNTER 2020-12-14 07:28 | Outpatient (CLI) | payer OTHER, SELFPAY ==
[2020-12-14] VITALS (7 sets, daily range): BP systolic 106–134; BP diastolic 52–84; PULSE 63–71; RESP 13–18; TEMP 36.2; O2SAT 92–98
--- NOTE | 2020-12-14 07:29 | DI.RAD.S_ITS ---
PROCEDURE: PAIN L/SI FACET INJ/BLK 1STL INDICATIONS: SPONDYLOSIS COMPARISON: [facility], , PAIN L/SI FACET INJ/BLK 1STL, 04/20/2019, 9:55. FINDINGS: Fluoroscopic spot filming was performed to verify placement of spinal needles at the L4, L5, and S1 level(s), as labeled on the films. Appropriate location(s) of the needle tip(s) was confirmed by injection of iodinated contrast. IMPRESSION: Intraprocedural examination within normal limits. Dictated by: Agusto Aleman M.D. on 12/14/2020 at 9:09 Approved by: Agusto Aleman M.D. on 12/14/2020 at 9:10
[2020-12-14] MEDS: MIDAZOLAM 5 MG/5 ML VIAL IV (08:26)
[2020-12-14] MEDS: fentaNYL 100 MCG/2 ML INJ 50 MCG IV (08:26)
[2020-12-14] MEDS: BUPIVACAINE 0.5% (PF) VIAL 10 ML INJ (08:35)
[2020-12-14] MEDS: IOPAMIDOL 15 ML VIAL 3 ML INJ (08:36)
--- NOTE | 2020-12-14 08:42 | P.PCN_ITS ---
Date/Time/Diagnoses Date of procedure: 12/14/20 Time of procedure: 08:42 Pre-procedure diagnosis: 1. FACET ARTHROPATHY Post-procedure diagnosis: same Procedure Notes Procedure: 1. Left L4, L5 and S1 MB BLOCKS Indications: Halley is referred by Katt Malik for treatment of Left Axial LBP. Physician: Jorge Luis Mariano Total Fluoroscopy time (seconds): 6 Total sedation minutes: 12 Complications: none Procedure in detail & Post-procedure care: DESCRIPTION OF PROCEDURE Fluoroscopically guided, contrast-controlled left L4, L5 and S1 medial branch blocks with 0.5cc of 0.5% Marcaine. Following review of allergy and review of potential side effects and complications, including, but not necessarily limited to, infection, allergic reaction, local tissue breakdown, nerve injury, paralysis, stroke and possible , the patient indicated that the patient understood and agreed to proceed. An informed consent document was signed by the patient, witnessed by a nurse, and placed in the patient's chart. After review of previous anaesthesic history and IV conscious sedation the patient was deemed safe to proceed with today?s procedure with IV conscious sedation as ASA class II designation. Safety time-out was performed to confirm patient ID, procedure to be performed and site of procedure. IV sedation was accomplished with a combination of 3mg of Versed and 50mcg of Fentanyl was administered by the RN after DO order, titrated to patient comfort during the course of the procedure while the patient remained responsive to all verbal commands. In the prone position, following sterile prep and drape of the lumbar region, the left L4, L5 and S1 anatomical location of the medial branch of the dorsal ramus was identified fluoroscopically. Subsequently an anesthetic skin wheal using 1% lidocaine solution was initiated at each of the anatomical spots. Subsequently then a 22-gauge 3.5-inch spinal needle was atraumatically introduced and advanced under fluoroscopic guidance at each of the corresponding sites at the left L4, L5 and S1 MB. After negative aspiration, 0.2cc of Isovue 200 was injected, confirming placement without vascular or intrathecal uptake. Subsequently then 0.5cc of 0.5% Marcaine solution was injected at each of the corresponding sites at the left L4, L5 and S1 medial branch locations. The patient tolerated the procedure well without signs or symptoms of complications. The patient tolerated the procedure well without signs or symptoms of complications prior to transfer to the recovery area continued monitoring without incident. Post-procedure, the patient was monitored initiating provocative activities to measure the amount of relief from block of the facetogenic pain. The patient reported a VAS of 7 prior to the procedure and a post-procedure VAS of 1. It has been a pleasure to assist in the diagnostic and therapeutic care of your patient. POST OP INSTRUCTIONS The patient was provided with a Pain Log to complete over the next several hours and subsequent days prior to the patient's follow up with the ordering physician. If the patient has swinging cut off saw operator relief to the solution applied, then they may be a candidate for medial branch rhizotomy. The patient is aware, was provided, once again, with a Pain Log and will follow up with the referring physician for review and clinical correlation.
== END 2020-12-14 09:10 | disposition home or self-care (01) ==
LOC: RAD 07:29
PROVIDERS: Family Provider Student in an Organized Health Care Education/Training Program; PCP Student in an Organized Health Care Education/Training Program; Referring Provider Physical Medicine & Rehabilitation; Visit Provider Physical Medicine & Rehabilitation
DX: M47.816 Spondylosis without myelopathy or radiculopathy, lumbar region (principal); M47.817 Spondylosis without myelopathy or radiculopathy, lumbosacral region; M54.5 Low back pain
CPT/HCPCS: 64493; 64494; 99152; J2250; J3010

== ENCOUNTER → 2021-01-22 08:26 | Outpatient (CLI) | payer OTHER, SELFPAY ==
[2021-01-22 13:36] LABS: COVID19 -Nasal RAPID Negative (Negative)
== END ==
PROVIDERS: Family Provider Student in an Organized Health Care Education/Training Program; PCP Student in an Organized Health Care Education/Training Program; Visit Provider Physical Medicine & Rehabilitation
DX: Z20.822 Contact with and (suspected) exposure to COVID-19 (principal)
CPT/HCPCS: 87635

== ENCOUNTER 2021-01-23 07:28 | Outpatient (CLI) | payer OTHER, SELFPAY ==
[2021-01-23] VITALS (13 sets, daily range): BP systolic 114–157; BP diastolic 53–68; PULSE 66–76; RESP 13–22; TEMP 36.8; O2SAT 93–98
--- NOTE | 2021-01-23 07:28 | DI.RAD.S_ITS ---
PROCEDURE: PAIN L/S MED/LAT N RFA BILAT INDICATIONS: SPONDYLOSIS COMPARISON: [facility], , PAIN L/S MED/LAT N RFA BILAT, 03/16/2020, 8:36. FINDINGS: Fluoroscopic spot filming was performed to verify placement of spinal needles at the L4, L5, S1 levels on both sides, as labeled on the films. IMPRESSION: Intraprocedural examination within normal limits. Dictated by: Agusto Aleman M.D. on 01/23/2021 at 8:51 Approved by: Agusto Aleman M.D. on 01/23/2021 at 8:51
[2021-01-23] MEDS: fentaNYL 100 MCG/2 ML INJ 50 MCG IV (08:33)
[2021-01-23] MEDS: LIDOCAINE 1% 20 ML 10 ML INJ (08:36)
[2021-01-23] MEDS: BUPIVACAINE 0.5% (PF) VIAL 5 ML INJ (08:37)
[2021-01-23] MEDS: MIDAZOLAM 5 MG/5 ML VIAL IV (08:45)
--- NOTE | 2021-01-23 09:08 | P.PCN_ITS ---
Date/Time/Diagnoses Date of procedure: 01/23/21 Time of procedure: 09:08 Pre-procedure diagnosis: 1. RECALCITRANT FACET ARTHROPATHY Post-procedure diagnosis: same Procedure Notes Procedure: 1. BILATERAL L4 AND L5 MEDIAL BRANCH RADIOFREQUENCY NEUROTOMY AND S1 DORSAL RAMUS BRANCH RADIOFREQUENCY NEUROTOMY Indications: Halley is referred by GURDEEP Malik for treatment of facet arthropathy. Physician: Jorge Luis Mariano Total Fluoroscopy time (seconds): 24 Total sedation minutes: 30 Complications: none Procedure in detail & Post-procedure care: DESCRIPTION OF PROCEDURE Bilateral L4 and L5 medial branch radiofrequency neurotomy and bilateral S1 dorsal ramus radiofrequency neurotomy under fluoroscopy with conscious sedation. The patient is well known to this clinic having undergone previous facet injections with good but temporary relief. The patient has experienced appropriate, concordant relief with previous facet and median branch blocks but the patient's pain has been recalcitrant to further conservative measures. Therefore, based upon the patient's relief and persistent symptoms, the patient is considered an appropriate candidate for facet rhizotomy. All of the patient's questions regarding the risks versus benefits of the procedure, including, but not limited to, bleeding, infection, temporary as well as lasting nerve injury, paralysis, stroke, and , as well treatment alternatives were answered to satisfaction. After obtaining informed consent, denial of pertinent drug allergies, as well as being made aware of the potential risks of bleeding, infection, spinal cord trauma, paralysis, temporary and permanent nerve damage, seizure, stroke, and possible , the patient was brought to the fluoroscopy suite and positioned prone on the fluoroscopy table. The lumbar region was prepped with Betadine and covered with a fenestrated drape in the usual sterile fashion. Appropriate monitors applied including pulse oximeter, pulse, and blood pressure for regular monitoring throughout the procedure. After review of previous anaesthesic history and IV conscious sedation the patient was deemed safe to proceed with today's procedure with IV conscious sedation as ASA class II designation. Safety time-out was performed to confirm patient ID, procedure to be performed and site of procedure. IV sedation was accomplished with a combination of 5mg of Versed and 50mcg of Fentanyl administered by the RN after DO order, titrated to patient comfort during the course of the procedure while the patient remained responsive to all verbal commands. After local infiltration using 1% lidocaine, under fluoroscopic guidance, a 10- cm RF insulated needle with a 10-mm active tip was positioned parallel to the junction of the right sacral ala and the superior articulating process where the S1 dorsal ramus resides. Needle placement was confirmed with motor stimulation of .5v on the right which produced local stimulation without radicular component. The stimulation was then increased to 2v with, once again, only local multifidus stimulation without radicular component. The needle was then removed and the identical procedure was performed along the length of the right L5 medial branch with motor stimulation at .7v on the right. The identical procedure was once again performed along the length of the right L4 medial branch with motor stimulation of .5v on the right. The medial branches were then anesthetised with 0.5% Marcaine. This was then followed by two discreet lesions performed at 80 degrees Celsius for 90 seconds each. The identical procedure was repeated on the left. The patient tolerated the procedure well without signs or symptoms of complications prior to transfer to the recovery area continued monitoring without incident. The patient was then transferred to the recovery area where they were observed for an appropriate period of time after the injection. The patient reported a VAS score of 9 prior to the procedure and a post-procedure VAS of 0. POST OP INSTRUCTIONS The patient was provided a Pain Log to continue to record the patient's response to the target-specific procedure prior to the patient's follow-up visit with the referring physician. Additionally, specific post-injection care instructions and a contact number to our office were provided if concerns arise regarding possible complications associated with the procedure are suspected.
== END 2021-01-23 09:26 | disposition home or self-care (01) ==
LOC: RAD 07:28
PROVIDERS: Family Provider Student in an Organized Health Care Education/Training Program; PCP Student in an Organized Health Care Education/Training Program; Referring Provider Physical Medicine & Rehabilitation; Visit Provider Physical Medicine & Rehabilitation
DX: M47.816 Spondylosis without myelopathy or radiculopathy, lumbar region (principal); M47.817 Spondylosis without myelopathy or radiculopathy, lumbosacral region
CPT/HCPCS: 64635; 64636; 99152; 99153; J2250; J3010

== ENCOUNTER → 2023-02-21 08:08 | Outpatient (CLI) | payer OTHER, MEDICARE, SELFPAY ==
--- NOTE | 2023-02-21 08:11 | DI.RAD.S_ITS ---
PROCEDURE: XR LUMBAR SPINE MIN 4V INDICATIONS: BACK PAIN TECHNIQUE: 5 views of the lumbar spine were acquired, including bilateral oblique views. COMPARISON: [facility], CR, XR LUMBAR SPINE MIN 4V, 04/28/2020, 8:49. [facility], CR, XR LUMBAR SPINE MIN 4V, 07/03/2018, 12:42. FINDINGS: Bones: There are 5 [id number] lumbar vertebral bodies. Compression deformities at L1 and L2 are unchanged from April 28, 2020. Trace L4-5 anterolisthesis is redemonstrated. Soft tissues: Overlying bowel gas pattern is normal. No suspicious soft tissue calcifications. Oblique images: No pars defects. IMPRESSION: 1. Stable compression deformities at L1 and L2. 2. Trace L4-5 anterolisthesis. No radiographic findings to suggest spondylolysis. Dictated by: Mikayla Day M.D. on 02/21/2023 at 9:11 Approved by: Mikayla Day M.D. on 02/21/2023 at 9:12
--- NOTE | 2023-02-21 08:11 | DI.RAD.S_ITS ---
PROCEDURE: XR CERVICAL SPINE 4V OR 5V INDICATIONS: NECK PAIN TECHNIQUE: 5 views of the cervical spine acquired. COMPARISON: [facility], CR, XR CERVICAL SPINE 2V OR 3V, 09/14/2020, 10:09. FINDINGS: Bones: No acute fracture or dislocation. There is trace C4 on C5 anterolisthesis, unchanged from September 14, 2020. Mild to moderate degenerative changes including intervertebral disc space narrowing and osteophytosis are present throughout the cervical spine. Moderate foraminal stenosis is present on the left at C5-C7. No significant right neural foraminal stenosis. Soft tissues: No prevertebral soft tissue swelling. IMPRESSION: Degenerative change and left foraminal stenosis as above. Dictated by: Mikayla Day M.D. on 02/21/2023 at 9:13 Approved by: Mikayla Day M.D. on 02/21/2023 at 9:14
== END ==
PROVIDERS: Family Provider Student in an Organized Health Care Education/Training Program; PCP Student in an Organized Health Care Education/Training Program; Referring Provider Physical Medicine & Rehabilitation; Visit Provider Physical Medicine & Rehabilitation
DX: M48.02 Spinal stenosis, cervical region (principal); M47.816 Spondylosis without myelopathy or radiculopathy, lumbar region; M54.2 Cervicalgia; M47.812 Spondylosis without myelopathy or radiculopathy, cervical region; M48.061 Spinal stenosis, lumbar region without neurogenic claudication; M43.8X6 Other specified deforming dorsopathies, lumbar region; M43.17 Spondylolisthesis, lumbosacral region
CPT/HCPCS: 72050; 72110